=== PATIENT | male | born 1965 | race Two or more races ===

== ENCOUNTER 2021-11-08 03:40 | Inpatient (IN) | payer OTHER ==
[2021-11-08] VITALS (18 sets, daily range): BP systolic 82–178; BP diastolic 44–89
[~2021-11-08] VITALS: Ht 175.3 cm; Wt 107.5 kg
[2021-11-08] MEDS ORDERED: IV NORMAL SALINE 250 ML IV ONE (04:15)
[2021-11-08] MEDS ORDERED: NOREPINEPHRINE BITARTRATE 8 MG in IV NORMAL SALINE 242 ML IV PRN (04:15)
[2021-11-08 04:28] LABS: HEMATOCRIT 35.7 % (36.7-47.1); MEAN CORPUSCULAR HEMOGLOBIN 28.5 uug (23.8-33.4); MEAN CORPUSCULAR VOLUME 85.9 fL (73.0-96.2); PLATELET COUNT (AUTO) 376 K/uL (152-348)
[2021-11-08 04:38] LABS: CARBON DIOXIDE 26 mmol/L (21-32); CHLORIDE 105 mmol/L (98-107); CREATININE 3.6 mg/dL (0.6-1.3); GLUCOSE 145 mg/dL (74-106); POTASSIUM 4.2 mmol/L (3.5-5.1); UREA NITROGEN, BLOOD 39 mg/dL (7-18)
[2021-11-08] MEDS ORDERED: NOREPINEPHRINE BITARTRATE 4 MG/4 ML VIAL IV ONE (04:45)
[2021-11-08 04:55] LABS: ALANINE AMINOTRANSFERASE 17 U/L (16-63); ALKALINE PHOSPHATASE 87 U/L (50-136); ASPARTATE AMINOTRANSFERASE 14 U/L (15-37); BILIRUBIN,DIRECT 0.2 mg/dL (0.0-0.2); BILIRUBIN,TOTAL 0.5 mg/dL (0.2-1.0); TOTAL PROTEIN, SERUM 7.6 g/dL (6.4-8.2)
[2021-11-08] MEDS ORDERED: PIPERACILLIN SODIUM/TAZOBACTAM 3.375 G in IV DEXTROSE 5% 50 ML IV ONE (05:15)
[2021-11-08] MEDS ORDERED: PIPERACILLIN/TAZOBACTAM/D5W 50 ML IV ONE (05:23)
[2021-11-08] MEDS ORDERED: FOLI0.8T23 PO (06:19)
[2021-11-08] MEDS ORDERED: LOSA50TA39 PO (06:19)
[2021-11-08] MEDS ORDERED: PANT40TA49 PO (06:19)
[2021-11-08] MEDS ORDERED: FURO20TA4 PO (06:19)
[2021-11-08] MEDS ORDERED: FENO48TA6 PO (06:19)
[2021-11-08] MEDS ORDERED: SEVE800T8 PO (06:19)
[2021-11-08] MEDS ORDERED: CHOL400C8 PO (06:19)
[2021-11-08] MEDS ORDERED: ACET-2154 PO (06:19)
[2021-11-08] MEDS ORDERED: AMLO-212 PO (06:19)
[2021-11-08] MEDS ORDERED: DETEMIR SUBCUT (06:19)
[2021-11-08] MEDS ORDERED: BISA10SU61 RC (06:19)
[2021-11-08] MEDS ORDERED: DULA1.5P SQ (06:19)
[2021-11-08] MEDS ORDERED: NA P133E RC (06:19)
[2021-11-08] MEDS ORDERED: AMIN887L21 PO (06:19)
[2021-11-08] MEDS ORDERED: HYDR-3972 PO (06:19)
[2021-11-08] MEDS ORDERED: HYDROCODONE/APAP 5-325MG TABLET PO PRN (06:30)
[2021-11-08] MEDS ORDERED: ACETAMINOPHEN 325 MG TABLET PO PRN (06:30)
[2021-11-08] MEDS ORDERED: IV NS 1000 ML 1,000 ML IV PRN ×2 (06:30→07:00)
[2021-11-08] MEDS ORDERED: ACETAMINOPHEN 325 MG TABLET-SA PATIENTS-PAIN ONLY PO PRN (06:30)
[2021-11-08] MEDS ORDERED: REMEDY ESSENTIAL ZINC PASTE 113 GM TP PRN (06:30)
[2021-11-08] MEDS ORDERED: FLEET ENEMA 133 ML BOTTLE RC PRN (06:30)
[2021-11-08] MEDS ORDERED: ONDANSETRON 4 MG/2 ML VIAL IV PRN (06:30)
[2021-11-08] MEDS ORDERED: BISACODYL 10 MG SUPP.RECT RC PRN (06:30)
[2021-11-08] MEDS ORDERED: MAGNESIUM HYDROXIDE 30 ML LIQUID UDC PO PRN (06:30)
[2021-11-08] MEDS ORDERED: IV NORMAL SALINE 500 ML IV ONE ×2 (06:30)
[2021-11-08] MEDS ORDERED: VANCOMYCIN IV 500 MG in IV DEXTROSE 5% 100 ML IV PRN (07:00)
[2021-11-08] MEDS: HYDROCORTISONE SOD SUCCINATE 100 MG/2 ML VIAL IV SCH ×3 (07:17→22:16)
[2021-11-08 07:53] LABS: *BLOOD, URINE 1+ (NEGATIVE); *COLOR,URINE YELLOW (YELLOW); *KETONES,URINE 1+ (NEGATIVE); *UROBILINOGEN,URINE 0.2 E.U./dl (NORMAL); LEUKOCYTE ESTERASE ,URINE NEGATIVE (NEGATIVE); NITRITE, URINE NEGATIVE (NEGATIVE); UGLUCOSE NEGATIVE (NEGATIVE)
[2021-11-08] MEDS: PROTEIN SUPPLEMENT (PROSTAT) 30 ML LIQUID PO SCH ×2 (08:00→17:36)
[2021-11-08] MEDS ORDERED: VANCOMYCIN IV 1,500 MG in IV DEXTROSE 5% 500 ML IV ONE (08:00)
[2021-11-08 08:09] LABS: *BILIRUBIN,URIN 2+ (NEGATIVE)
[2021-11-08 08:11] LABS: *CLARITY,URINE SLIGHTLY CLOUDY (CLEAR)
[2021-11-08 08:50] LABS: WBC,URINE 0-3 /HPF (0-3)
[2021-11-08 08:51] LABS: BACTERIA,URINE FEW /HPF (NONE SEEN); SQUAMOUS EPITHELIAL CELL,UR FEW /HPF (NONE SEEN); YEAST,URINE MODERATE /HPF (NONE SEEN)
[2021-11-08] MEDS ORDERED: PANTOPRAZOLE SODIUM 40 MG VIAL IV SCH (09:00)
[2021-11-08] MEDS: AMLODIPINE 5 MG TABLET PO SCH (09:00)
[2021-11-08] MEDS ORDERED: FENOFIBRATE NANOCRYSTALLIZED 48 MG TABLET PO SCH (09:00)
[2021-11-08] MEDS ORDERED: CHOLECALCIFEROL 400 UNIT PO SCH (09:00)
[2021-11-08] MEDS: FOLIC ACID/VITAMIN B COMP W-C TABLET PO SCH (09:18)
[2021-11-08] MEDS: SEVELAMER CARBONATE 800 MG TABLET PO SCH ×3 (09:19→17:34)
[2021-11-08] MEDS: CHOLECALCIFEROL 400 UNITS TABLET PO SCH (09:34)
[2021-11-08] MEDS ORDERED: PIPERACILLIN/TAZO 0.75 G in IV DEXTROSE 5% 50 ML IV PRN (10:00)
[2021-11-08] MEDS ORDERED: PIPERACILLIN SODIUM/TAZOBACTAM 3.375 G in IV DEXTROSE 5% 50 ML IV SCH (12:00)
[2021-11-08] MEDS: PIPERACILLIN/TAZO 2.25 G in IV DEXTROSE 5% 50 ML IV SCH (17:36)
[2021-11-08] MEDS ORDERED: DEXTROSE 50% 50 ML DISP.SYRIN IV PRN (21:45)
[2021-11-08] MEDS: BLOOD SUGAR DIAGNOSTIC 1 EACH STRIP VI SCH (21:50)
[2021-11-08] MEDS: INSULIN REGULAR, HUMAN 300 UNIT/3 ML VIAL SQ PRN (22:07)
[2021-11-09] VITALS (18 sets, daily range): BP systolic 108–156; BP diastolic 62–82
[2021-11-09 05:15] LABS: HEMATOCRIT 34.1 % (36.7-47.1); MEAN CORPUSCULAR HEMOGLOBIN 28.5 uug (23.8-33.4); PLATELET COUNT (AUTO) 355 K/uL (152-348)
[2021-11-09 05:24] LABS: CREATININE 3.8 mg/dL (0.6-1.3); MAGNESIUM 1.8 mg/dL (1.8-2.4); PHOSPHOROUS 3.3 mg/dL (2.5-4.9); POTASSIUM 4.5 mmol/L (3.5-5.1); VANCOMYCIN,RANDOM 16.7 ug/mL (18.0-26.0)
[2021-11-09] MEDS: PANTOPRAZOLE SODIUM 40 MG TABLET.DR PO SCH (06:05)
[2021-11-09] MEDS: HYDROCORTISONE SOD SUCCINATE 100 MG/2 ML VIAL IV SCH ×3 (06:07→21:00)
[2021-11-09] MEDS: PIPERACILLIN/TAZO 2.25 G in IV DEXTROSE 5% 50 ML IV SCH ×2 (06:11→17:48)
[2021-11-09] MEDS: BLOOD SUGAR DIAGNOSTIC 1 EACH STRIP VI SCH ×4 (06:38→20:47)
[2021-11-09] MEDS: CHOLECALCIFEROL 400 UNITS TABLET PO SCH (08:10)
[2021-11-09] MEDS: SEVELAMER CARBONATE 800 MG TABLET PO SCH ×3 (08:10→17:48)
[2021-11-09] MEDS: FOLIC ACID/VITAMIN B COMP W-C TABLET PO SCH (08:10)
[2021-11-09] MEDS: AMLODIPINE 5 MG TABLET PO SCH (08:12)
[2021-11-09] MEDS: INSULIN REGULAR, HUMAN 300 UNIT/3 ML VIAL SQ PRN ×4 (08:13→20:55)
[2021-11-09] MEDS: PROTEIN SUPPLEMENT (PROSTAT) 30 ML LIQUID PO SCH ×2 (08:17→16:01)
[2021-11-09 12:16] LABS: THYROID STIMULATING HORMONE 0.608 mIU/mL (0.358-3.740)
[2021-11-09] MEDS ORDERED: VANCOMYCIN IV 500 MG in IV DEXTROSE 5% 100 ML IV ONE (17:00)
[2021-11-09] MEDS: ASPIRIN EC 81 MG TABLET.DR PO SCH (17:50)
[2021-11-09] MEDS: METOPROLOL TARTRATE 25 MG TABLET PO SCH ×2 (17:50→21:05)
[2021-11-09] MEDS ORDERED: ATORVASTATIN 40 MG TABLET PO SCH (21:00)
[2021-11-10] VITALS: BP 135/77
[2021-11-10 04:00] VITALS: BP 146/81
[2021-11-10 04:50] LABS: MEAN CORPUSCULAR HEMOGLOBIN 28.6 uug (23.8-33.4); MEAN CORPUSCULAR VOLUME 84.5 fL (73.0-96.2); PLATELET COUNT (AUTO) 362 K/uL (152-348)
[2021-11-10 05:01] LABS: CREATININE 3.3 mg/dL (0.6-1.3); MAGNESIUM 1.9 mg/dL (1.8-2.4); POTASSIUM 3.8 mmol/L (3.5-5.1)
[2021-11-10] MEDS: HYDROCORTISONE SOD SUCCINATE 100 MG/2 ML VIAL IV SCH ×2 (05:09→13:36)
[2021-11-10] MEDS: INSULIN REGULAR, HUMAN 300 UNIT/3 ML VIAL SQ PRN ×2 (05:47→11:49)
[2021-11-10] MEDS: PANTOPRAZOLE SODIUM 40 MG TABLET.DR PO SCH (05:57)
[2021-11-10] MEDS: PIPERACILLIN/TAZO 2.25 G in IV DEXTROSE 5% 50 ML IV SCH (05:59)
[2021-11-10] MEDS: BLOOD SUGAR DIAGNOSTIC 1 EACH STRIP VI SCH ×2 (06:00→11:48)
[2021-11-10] MEDS: FOLIC ACID/VITAMIN B COMP W-C TABLET PO SCH (07:31)
[2021-11-10] MEDS: SEVELAMER CARBONATE 800 MG TABLET PO SCH ×2 (07:31→11:55)
[2021-11-10] MEDS: CHOLECALCIFEROL 400 UNITS TABLET PO SCH (07:31)
[2021-11-10] MEDS: ASPIRIN EC 81 MG TABLET.DR PO SCH (07:31)
[2021-11-10] MEDS: PROTEIN SUPPLEMENT (PROSTAT) 30 ML LIQUID PO SCH (07:36)
[2021-11-10] MEDS: METOPROLOL TARTRATE 25 MG TABLET PO SCH (07:36)
[2021-11-10 08:07] VITALS: BP 151/83
[2021-11-10] MEDS ORDERED: NEPRO (VANILLA) 237 ML CAN PO SCH (11:15)
[2021-11-10 12:07] LABS: HEPATITIS B SURFACE AG Negative (Negative)
[2021-11-10 12:07] LABS: HEPATITIS B SURFACE AG Negative (Negative)
[2021-11-10] MEDS ORDERED: INSULIN GLARGINE,HUM 300 UNITS/3 ML CARTRIDGE SQ SCH (12:30)
[2021-11-10 13:24] VITALS: BP 168/90
[2021-11-10 13:36] VITALS: BP 168/90
[2021-11-10] MEDS ORDERED: CLONIDINE HCL 0.2 MG TABLET PO ONE (13:45)
== END 2021-11-10 16:21 | DRG 198 ==
LOC: ER 03:49 → CCU 05:30
PROC: B548ZZA Ultrasonography of Superior Vena Cava, Guidance (ICD-10-PCS; principal; 2021-11-08)
PROC: 02HV33Z Insertion of Infusion Device into Superior Vena Cava, Percutaneous Approach (ICD-10-PCS; principal; 2021-11-08)
PROC: 5A1D70Z Performance of Urinary Filtration, Intermittent, Less than 6 Hours Per Day (ICD-10-PCS; 2021-11-09)
DX: I25.110 Atherosclerotic heart disease of native coronary artery with unstable angina pectoris (principal); R57.0 Cardiogenic shock; I95.3 Hypotension of hemodialysis; E11.610 Type 2 diabetes mellitus with diabetic neuropathic arthropathy; I12.0 Hypertensive chronic kidney disease with stage 5 chronic kidney disease or end stage renal disease; D63.1 Anemia in chronic kidney disease; N18.6 End stage renal disease; E11.22 Type 2 diabetes mellitus with diabetic chronic kidney disease; Z99.2 Dependence on renal dialysis; E11.51 Type 2 diabetes mellitus with diabetic peripheral angiopathy without gangrene; E66.01 Morbid (severe) obesity due to excess calories; E78.5 Hyperlipidemia, unspecified; I25.5 Ischemic cardiomyopathy; Z20.822 Contact with and (suspected) exposure to COVID-19; Z79.4 Long term (current) use of insulin; Z98.61 Coronary angioplasty status; N31.9 Neuromuscular dysfunction of bladder, unspecified; I25.2 Old myocardial infarction; D72.829 Elevated white blood cell count, unspecified; D64.9 Anemia, unspecified; N25.0 Renal osteodystrophy; L98.419 Non-pressure chronic ulcer of buttock with unspecified severity; L97.429 Non-pressure chronic ulcer of left heel and midfoot with unspecified severity; L97.419 Non-pressure chronic ulcer of right heel and midfoot with unspecified severity; I95.89 Other hypotension
CPT/HCPCS: 36415; 36569; 71045; 83605; 83735; 84100; 84443; 84484; 85025; 86706; 87040; 87086; 87340; 93005; A4663; A6209; C9113; G0378; J1720; J1815; J2543; J3370; J3490; J7040; J7060